=== PATIENT | male | born 2000 | race Caucasian/White ===

== ENCOUNTER 2020-04-06 17:48 | Emergency (ER) | payer OTHER ==
[2020-04-06 17:57] VITALS: BP 137/74
--- NOTE | 2020-04-06 17:59 | ED Physician Documentation ---
PD HPI LOWER EXT INJURY - Stated complaint Stated Complaint: LT FT INJ - Chief complaint Chief Complaint: Ext Problem - History obtained from History obtained from: Patient (19-year-old gentleman was skateboarding last night and fell and inverted his left foot and ankle, complains of lateral foot pain. No other injuries. He is unable to walk or bear weight.) - Additional information Additional information: Declines pain medication on initial evaluation Review of Systems Constitutional: reports: Reviewed and negative Eyes: reports: Reviewed and negative Ears: reports: Reviewed and negative Nose: reports: Reviewed and negative Throat: reports: Reviewed and negative PD PAST MEDICAL HISTORY - Allergies Allergies/Adverse Reactions: Allergies Allergy/AdvReac Type Severity Reaction Status Date / Time No Known Drug Allergies Allergy Verified 04/06/20 17:57 PD ED PE NORMAL - Vitals Vital signs reviewed: Yes - General General: Alert and oriented X 3, No acute distress - Extremities Extremities: Other (Mild tenderness over the left ATFL and proximal fifth metatarsal without malleoli or proximal fibular tenderness.) - Neuro Neuro: Alert and oriented X 3, Normal speech Results - Vitals Vitals: Vital Signs - 24 hr 04/06/20 17:54 Temperature 36.4 C L Heart Rate 96 Respiratory 18 Rate Blood Pressure 137/74 H O2 Saturation 99 Oxygen O2 Source Room air - Rads (name of study) L foot XR Radiology: EMP read contemporaneously (Proximal fifth metatarsal fracture) Procedures - Splint (location) LLE Splint applied by: Tech Type of splint: Fiberglass, Short leg, Posterior Other: Patient tolerated well, No complications, Neurovascular intact, Crutches provided Departure - Departure Disposition: 01 Home, Self Care Clinical Impression: Nondisplaced fracture of fifth left metatarsal bone Qualifiers: Encounter type: initial encounter Fracture type: closed Qualified Code(s): S92.355A - Nondisplaced fracture of fifth metatarsal bone, left foot, initial encounter for closed fracture Condition: Good Record reviewed to determine appropriate education?: Yes Instructions: ED Fx Foot Comments: Call the [facility] tomorrow. You will need a follow-up visit within the week with 1 of the orthopedic surgeons on [facility] ([place]). Keep it elevated. Tylenol or ibuprofen as needed for pain. You can ice it through the splints as well. Forms: Activity restrictions
--- NOTE | 2020-04-06 19:01 | XRAY Report ---
PROCEDURE: Foot 3 View LT INDICATIONS: foot inj TECHNIQUE: 3 views of the foot were acquired. COMPARISON: None FINDINGS: Bones: Minimally displaced fracture of the proximal aspect of the fifth metatarsal. No suspicious bon y lesions. Soft tissues: No tibiotalar joint effusion. Achilles tendon appears normal. IMPRESSION: Proximal fifth metatarsal fracture. Reviewed by: Farida Davison MD on 04/06/2020 6:59 PM PDT Approved by: Farida Davison MD on 04/06/2020 6:59 PM PDT Station ID: [id number]
== END 2020-04-06 19:47 | disposition home or self-care (01) ==
LOC: ED 17:48
DX: S92.355A Nondisplaced fracture of fifth metatarsal bone, left foot, initial encounter for closed fracture (principal); V00.131A Fall from skateboard, initial encounter; Y93.51 Activity, roller skating (inline) and skateboarding
CPT/HCPCS: 29515; 99283